=== PATIENT | male | born 1970 | race Caucasian/White ===

== ENCOUNTER → 2016-09-04 08:30 | Day surgery (SDC) | payer OTHER ==
[~2016-09-04 08:30] MED LIST: Buffered Lidocaine 1% SYR 3ML* 3 ML/SYR SYRINGE INTRADERM ONE; HYDROcodone/ACETAMIN 5-325 MG* 1 TAB ONE; HYDROcodone/ACETAMIN 5-325 MG* 1 TAB PO PRN; Ketorolac INJ* 30 MG/ML 1 ML VIAL IV PRN; Ketorolac INJ* 30 MG/ML 1 ML VIAL ONE; Lidocaine 2% PF* 10 ML AMP ONE; Midazolam* 1 MG/ML 5 ML VIAL (5 MG) ONE; Propofol* 10 MG/ML 20 ML BTL IV PUSH ONE; ceFAZolin 2 GM PREMIX (*) 2 GM/50 ML BAG IVPB ONE; fentaNYL* 50 MCG/ML 2 ML VIAL (100 MCG VIAL) IV PRN; fentaNYL* 50 MCG/ML 2 ML VIAL (100 MCG VIAL) ONE; oxyCODONE TAB* 5 MG TAB ONE
--- NOTE | 2016-09-04 10:48 | HP ---
HISTORY AND PHYSICAL: DATE OF ADMISSION: 09/04/16 HISTORY OF PRESENT ILLNESS: Mr. Singh is a 46-year-old gentleman who broke his left tibia falling off a ladder September 13, 2005. He had a double plating. Subsequently, with lateral wound breakdown, had the lateral plate removed. He still retains the large medial plat, which is bothering him, creating a change in weather pain and local irritation. Plan is elective plate removal medial tibia. Rafael is a relatively healthy 46-year-old. MEDICATIONS: He is currently takin. Lyrica 150 mg 3 times a day. 2. Amlodipine besylate 5 mg a day. 3. Cyclobenzaprine 1 p.o. daily. 4. He also takes Benadryl as needed for allergies. ALLERGIES: He does not have any drug allergies. SOCIAL HISTORY: Positive for smoking a half a pack a day. He has not worked since 2008 because of back pain. He used to be dairy helper. He uses alcohol on a regular basis. REVIEW OF SYSTEMS: Negative for headache issues, chest pain, shortness of breath, abdominal distress, GI disturbance, urination issues, diabetes, or thyroid issues. PHYSICAL EXAMINATION GENERAL: Rafael is healthy, alert, in no acute distress. HEENT: He is edentulous. NECK: He has a supple neck. CHEST: Clear. No wheezing or rales noted. CARDIAC: Regular rate. No extra sounds noted. ABDOMEN: Flat, nontender. Noncontributory. EXTREMITIES: He has a well-healed medial and lateral scar at the ankle. Minimal edema noted. No erythema. He has a warm sensate foot. Intact skin envelope. Tenderness is located over the vertical incision of the left distal tibia where he has a palpable plate and screws. IMPRESSION: Painful hardware left tibia. PLAN: Elective hardware removal. [id number]/[facility] #: [id number] [facility] HOSPITALRaphael
[2016-09-04 12:48] VITALS: BP 141/91
--- NOTE | 2016-09-05 02:19 | OP ---
DATE OF OPERATION: 09/04/16 - [facility] DATE OF : 72 ATTENDING SURGEON: Amadeo Bettencourt MD LEGAL SUPPORT SPECIALIST: Laura Tang PA-C ANESTHESIOLOGIST: Walter Downs MD ANESTHESIA: Monitored anesthesia care. PRE-OP DIAGNOSIS: Painful left tibial hardware and tibial plate. POST-OP DIAGNOSIS: Painful left tibial hardware and tibial plate. OPERATIVE PROCEDURE: Removal of left tibial plate. DESCRIPTION OF PROCEDURE: The patient was taken to the operating room where a longitudinal incision was made through the previous AL distal tibial incision. The plate was isolated along the medial tibial crest and removed with a large fragment screwdriver. There also was a front to back cortical screw, which was removed as well through a percutaneous incision. We irrigated thoroughly, closing the subcu tissue with Vicryl and vivien for the skin, and a compression dressing applied. [id number]/[facility] #: [id number] MTDD
== END | disposition home or self-care (01) ==
LOC: OR 08:30
PROVIDERS: ATTEND Orthopaedic Surgery
DX: T84.84XA Pain due to internal orthopedic prosthetic devices, implants and grafts, initial encounter (principal); Y83.1 Surgical operation with implant of artificial internal device as the cause of abnormal reaction of the patient, or of later complication, without mention of misadventure at the time of the procedure; F17.210 Nicotine dependence, cigarettes, uncomplicated; I10 Essential (primary) hypertension; S82.892S Other fracture of left lower leg, sequela; W11.XXXS Fall on and from ladder, sequela
CPT/HCPCS: 88300; A9270-GY; J0690; J1885; J2001; J2250; J2704; J3010

== ENCOUNTER 2019-06-27 06:36 | Day surgery (SDC) | payer OTHER ==
--- NOTE | 2019-01-09 08:07 | HP ---
CC: Dr. Murrell PREOPERATIVE HISTORY AND PHYSICAL: DATE OF ADMISSION: 02/04/19 CHIEF COMPLAINT: Numbness in the left hand. HISTORY OF PRESENT ILLNESS: Rafael is a 48-year-old male who has a history of left carpal tunnel rele ase with good result, but then a few months ago, suffered a crush injury of his left hand. Since the n, he has had numbness in his left hand and all of his fingers. On physical exam, he has evidence of median nerve compression of the left wrist and ulnar nerve compression of the left elbow. He presen ts for ulnar nerve decompression of the left elbow and left carpal tunnel release. MEDICATIONS: His medications are: 1. Lyrica 150 mg p.o. t.i.d. 2. Benadryl Allergy 25 mg t.i.d. p.r.n. 3. Amlodipine besylate 10 mg p.o. daily. 4. Cyclobenzaprine 10 mg p.o. p.r.n. 5. Losartan potassium 50 mg p.o. daily. DRUG ALLERGIES: None. PAST MEDICAL HISTORY: Hypertension, back pain, and environmental allergies. SOCIAL HISTORY: The patient is a current smoker. Occasionally drinks alcohol. The patient is not wo rking as he is disabled. Denies illicit drug use. PAST SURGICAL HISTORY: Bilateral shoulder surgery, left carpal tunnel release, left ankle surgery, s kull surgery when he was 12 years old. FAMILY HISTORY: Noncontributory. PHYSICAL EXAMINATION GENERAL: He is a healthy-appearing pleasant male, in minimal distress at rest. VITAL SIGNS: He is 64 inches tall, his weight is 165. Blood pressure 132/72, respirations 16, tempe rature 97.6. HEENT: Exam is unremarkable. He has good range of motion of his neck without pain. No masses are palpated. His eye movements are concentric. LUNGS: His lungs are clear to auscultation. Good inspiratory effort. No wheezing. CARDIAC: Regular rate and rhythm without murmur. Peripheral Vascular: He has palpable pulses and n o peripheral edema. NEUROLOGIC: He is alert and oriented without focal deficit. EXTREMITY: He has some swelling in his left hand. He has a well-healed incision from his carpal marcial swapna release, but decreased sensation in the median and ulnar nerve distribution in his left hand. He has positive Tinel sign on the ulnar nerve at the elbow. IMPRESSION: Left ulnar nerve compression at the elbow and left median nerve compression at the wris t. PLAN: Plan is for left carpal tunnel release and ulnar nerve decompression at the left elbow. The s urgical procedure, risks and benefits were explained to the patient today and he agrees to proceed. We will see him back in followup in approximately 10 days postop. [id number]/[facility] #: [id number]
--- NOTE | 2019-06-12 10:31 | HP ---
AMENDED REPORT NOW INCLUDES DESIGNATED COSIGNER HISTORY AND PHYSICAL: DATE OF ADMISSION/SURGERY: 06/27/19 DATE OF OFFICE VISIT: 06/09/19 ATTENDING SURGEON: Dr. Zara Murrell.* (DICTATED BY JANETH BLOCK) PROCEDURE: Left carpal tunnel release and left elbow ulnar nerve decompression. CHIEF COMPLAINT: Left extremity numbness and tingling. HISTORY OF PRESENT ILLNESS: Rafael is a 49-year-old male who has been having a lot of numbness in his hand and all of his fingers. He has had a carpal tunnel release in the past and does well with that, but after having a recent crush injury in December. The numbness in his fingers has been constant and quite bothersome. He rates his pain as 5/10 and states that it is pretty constant. PAST MEDICAL HISTORY: Hypertension, hyperlipidemia, seasonal allergies. PAST SURGICAL HISTORY: Left ankle surgery x3, left carpal tunnel release, index finger trigger finger release, right and left shoulder surgery, and hernia repair. MEDICATIONS: 1. Lyrica 150 mg 1 p.o. t.i.d. 2. Benadryl Allergy 25 mg 1 p.o. up to 3 times a day as needed. 3. Amlodipine besylate 10 mg 1 p.o. every day. 4. Cyclobenzaprine HCl 10 mg 1 p.o. p.r.n. 5. Furosemide 20 mg 1 p.o. every a.m. x5 days then as directed. 6. Losartan potassium 50 mg 1 p.o. daily. ALLERGIES: No known drug allergies. FAMILY HISTORY: Positive for hypertension and cancer. Negative for diabetes and coronary artery disease, stroke, rheumatoid arthritis, or lupus. Negative for DVT or PE or any known bleeding or clotting disorders. SOCIAL HISTORY: He is retired. He lives alone. He smokes 1 pack per day x26 years. He denies any recreational drug use. He drinks 8 to 12 cans of beer per day. He is right hand dominant. REVIEW OF SYSTEMS: Negative for general, cephalic, CV, respiratory, GI, or other musculoskeletal, integumentary, endocrine, neurologic, hematologic symptoms. Negative for history of MRSA, hep C or HIV. Negative for personal history of DVT or PE. Positive for numbness and tingling about the left hand. PHYSICAL EXAMINATION GENERAL: Well-developed, well-nourished, 49-year-old male, in no acute distress , appropriate mood and affect, appropriate dress and hygiene. VITAL SIGNS: Height 64 inches, weight 165 pounds, pulse 88, BP 142/80, respirations 16, BMI 28.4. HEENT: Normocephalic, atraumatic. PERRLA. Extraocular movements intact. NECK: Supple. PULMONARY: Lungs are clear to auscultation bilaterally. No wheezes, rales, or rhonchi. CARDIO: Regular rate and rhythm. S1, S2 normal. No murmurs, rubs, or gallops. No edema. ABDOMEN: Positive bowel sounds. Soft and nontender. No organomegaly appreciated. MUSCULOSKELETAL: Left upper extremity: Skin is intact with no abrasions or open wounds. There is a well-healed incision over the left wrist from previous carpal tunnel release. On exam today, he has a positive Tinel sign of the ulnar nerve at the elbow and positive Tinel sign at the median nerve of the wrist. I can flex and extend his fingers well, but has definite weakness with finger abduction, thumb abduction. Sensation is intact to light touch with altered and decreased compared to contralateral side. Radial pulse 2+. NEUROLOGIC: A and O x3. Cranial nerves II through XII intact. Sensation is intact to light touch. IMPRESSION: Recurrent carpal tunnel syndrome on the left and ulnar nerve compression of the left elbow. PLAN: The patient is scheduled to undergo left wrist carpal tunnel release and left elbow ulnar nerve decompression on 06/27/[address] Murrell discussed the procedure itself as well as the risks and benefits with the patient and he elected to proceed. He will follow up in the office 10 days postop for followup and suture removal. A prescription for tramadol will be e- scribed to the patient's pharmacy for postoperative pain management. I-STOP will be completed before prescribing. JANETH BLOCK [id number]/[facility] #: [id number] MTDD
[~2019-06-27 06:36] MED LIST changes: -Buffered Lidocaine 1% SYR 3ML* 3 ML/SYR SYRINGE INTRADERM ONE; +Buffered Lidocaine 1% SYRIN* 1 ML/SYRINGE INTRADERM ONE; +Famotidine IV* 10 MG/ML 2 ML (20 mg) IV ONE; +Famotidine IV* 10 MG/ML 2 ML (20 mg) ONE; -HYDROcodone/ACETAMIN 5-325 MG* 1 TAB ONE; -HYDROcodone/ACETAMIN 5-325 MG* 1 TAB PO PRN; -Ketorolac INJ* 30 MG/ML 1 ML VIAL IV PRN; -Ketorolac INJ* 30 MG/ML 1 ML VIAL ONE; +Lactated Ringers 1000 ML Bag* 1,000 ML IV SCH; -Lidocaine 2% PF* 10 ML AMP ONE; -Midazolam* 1 MG/ML 5 ML VIAL (5 MG) ONE; -Propofol* 10 MG/ML 20 ML BTL IV PUSH ONE; -ceFAZolin 2 GM PREMIX (*) 2 GM/50 ML BAG IVPB ONE; -fentaNYL* 50 MCG/ML 2 ML VIAL (100 MCG VIAL) IV PRN; -fentaNYL* 50 MCG/ML 2 ML VIAL (100 MCG VIAL) ONE; -oxyCODONE TAB* 5 MG TAB ONE
[2019-06-27] MEDS ORDERED: ceFAZolin 2 GM PREMIX in ORs 2 GM/50 ML BAG ONE (06:57)
[2019-06-27] MEDS ORDERED: Propofol* 10 MG/ML 20 ML BTL ONE (07:49)
[2019-06-27] MEDS ORDERED: Ondansetron INJ* 2 MG/ML VIAL ONE (07:49)
[2019-06-27] MEDS ORDERED: Midazolam* 1 MG/ML 5 ML VIAL (5 MG) ONE (07:49)
[2019-06-27] MEDS ORDERED: Ketorolac INJ* 30 MG/ML 1 ML VIAL ONE (07:49)
[2019-06-27] MEDS ORDERED: Lidocaine 1% INJ* 10 MG/ML 30 ML SDV ONE (08:06)
[2019-06-27] MEDS ORDERED: Bupivacaine 0.5% SDV PF* 30ML VIAL ONE (08:06)
[2019-06-27] MEDS ORDERED: Naloxone* 0.4 MG/ML 1 ML VIAL IV PRN (08:10)
[2019-06-27] MEDS ORDERED: oxyCODONE/Acetamin 5/325 MG* TAB PO PRN (08:10)
[2019-06-27] MEDS ORDERED: Lidocaine 2% PF * 5 ML VIAL ONE (08:27)
[2019-06-27] MEDS ORDERED: Dexamethasone IV* 4 MG/ML 1 ML (4 MG) ONE (08:27)
[2019-06-27 10:28] VITALS: BP 115/85
--- NOTE | 2019-06-28 00:24 | OP ---
CC: Dr. Murrell OPERATIVE REPORT: DATE OF OPERATION: 06/27/19 DATE OF : 72 SURGEON: Zara Murrell MD [employer] OPERATOR: JANETH Ewing ANESTHESIA: General. PRE-OP DIAGNOSES: Left carpal tunnel syndrome and left ulnar nerve compression at the elbow. POST-OP DIAGNOSES: Left carpal tunnel syndrome and left ulnar nerve compression at the elbow. OPERATIVE PROCEDURE: Left carpal tunnel release and ulnar nerve decompression at the elbow. ESTIMATED BLOOD LOSS: Zero. TOURNIQUET TIME: Approximately 30 minutes. INDICATION FOR PROCEDURE: Rafael is a 49-year-old male who has numbness and tingling in his left hand in both the median and ulnar nerve distribution. Clinically, he has median nerve compression of the wrist and ulnar nerve compression at the elbow. He presents for decompression of both nerves. DESCRIPTION OF PROCEDURE: The patient was brought to the operating room and was given a general anes thetic and placed in a supine position on the operating table with a tourniquet around his left upper arm. The skin of his left upper extremity was prepped and draped in usual sterile fashion. The up per extremity was exsanguinated and the tourniquet elevated to 250 mmHg. A longitudinal incision was made in the palm in line with the ring finger. We dissected through the subcutaneous tissue down to the transverse carpal ligament. This was a redo carpal tunnel release so there was some scarring ar ound the nerve. The ligament was divided sharply with the knife and then more proximally with scisso rs. The nerve was completely dissected free from the scar tissue and the underline flexor tendons. The wound was irrigated and the skin edges were reapproximated with 4-0 nylon suture. There was mode rate compression of the nerve at the midportion of ligament. Next, a curvilinear incision was made o n the medial aspect of the elbow and dissected through the subcutaneous tissue down to the ulnar nerv e at the cubital tunnel. The nerve was rather swollen in the carpal tunnel. We carefully dissected out proximally and distally through the FCU fascia. The medial intermuscular septum was divided with the Bovie. The wound was copiously irrigated with saline. The subcutaneous tissue was closed with 2-0 Vicryl and the skin with skin vivien. The wounds were dressed with Xeroform, 4x4, Webril, and a n Ryan wrap. The patient tolerated the procedure well and was brought to the recovery room in good con dition. [id number]/[facility] #: [id number]
== END 2019-06-27 10:20 | disposition home or self-care (01) ==
LOC: OREAST 06:36
PROVIDERS: ATTEND Orthopaedic Surgery
DX: G56.02 Carpal tunnel syndrome, left upper limb (principal); G56.22 Lesion of ulnar nerve, left upper limb; I10 Essential (primary) hypertension; E78.5 Hyperlipidemia, unspecified; J30.2 Other seasonal allergic rhinitis; F17.210 Nicotine dependence, cigarettes, uncomplicated
CPT/HCPCS: J0690; J1100; J1885; J2250; J2405; J2704; J3490